=== PATIENT | male | born 1970 | race Caucasian/White ===

== ENCOUNTER 2021-11-08 17:32 | Inpatient (IN) | payer OTHER, MEDICAID, SELFPAY ==
[2021-11-08 17:34] VITALS: BP 140/83; PULSE 98; RESP 14; TEMP 36.8; O2SAT 99; BMI 27.6
[2021-11-08 17:51] VITALS: BP 140/83; PULSE 98; RESP 14; TEMP 36.8; O2SAT 99
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
[2021-11-08 18:29] LABS: Absolute Lymphocyte Count 1.58 X10^3/uL (0.83-4.51); Absolute Neutrophil Count 5.3 X10^3/uL (2.0-7.7); Basophil# 0.03 X10^3/uL; Basophil% 0.4 % (0-1); Eosinophils% 1.3 % (0-5); Hematocrit 42.4 % (40-54); Hemoglobin 14.4 g/dL (13.0-16.5); Lymphocyte # 1.58 X10^3/ul (0.83-4.51); Mean Corpuscular Hgb 29.5 pg (27.0-32.0); Mean Corpuscular Volume 86.9 fL (80-94); Mean Platelet Vol. 9.6 fl (6.2-12.0); Monocyte# 0.45 X10^3/uL; NRBC Flagged by Analyzer 0 % (0-5); Neutrophil # 5.34 X10^3/uL (2.7-7.7); Neutrophil % 70.9 % (47-70); Platelet Count 269 K/mm3 (150-450); RBC Distribution Width CV 13.4 % (11.6-14.6); RBC Distribution Width SD 42.5 fl (35.1-43.9); Red Blood Count 4.88 M/mm3 (4.6-6.2); White Blood Count 7.5 K/mm3 (4.4-11.0)
--- NOTE | 2021-11-08 18:30 | RAD_ITS ---
STUDY: RIGHT CALCANEUS X-RAY SERIES OF 1837 HOURS ON 11/08/2021 REASON FOR EXAM: 51-year-old male with right calcaneal pain. Evaluate for an osteomyelitis. TECHNIQUE: 2 view(s) of the calcaneus were obtained. COMPARISON: None. FINDINGS: There is no evidence of fractures or dislocations. There is no evidence of an osteomyelitis or periostitis. There is a small calcaneal spur and a moderate size Achilles spur. The talocalcaneal and calcaneal tarsal joints are normal. There is a soft tissue ulcer in the posterior aspect of the heel is 1.1 cm deep and lies 1.6 cm from the calcaneus. RAD/Calcaneus min 2 Views IMPRESSION: 1. No calcaneal osteomyelitis or periostitis. 2. 1.1 cm the soft tissue ulcer in the posterior aspect of the heel that lies 1.6 cm from the calcaneus. 3. Small calcaneal spur and a moderate size Achilles spur. 4. No fractures or dislocations. 5. Normal-appearing adjacent joints. Electronically Signed: Mykel De La Torre MD at 19:58 EDT ,
[2021-11-08 18:40] LABS: Anion Gap 6 (5-15); BUN 19 mg/dL (7-18); BUN/Creat Ratio 14.8 RATIO (10-20); Calcium,Total 9.7 mg/dL (8.5-10.1); Chloride 107 mmol/L (98-107); Creatinine, Serum 1.28 mg/dL (0.70-1.30); EST Glomerular Filtration Rate 63 mL/min (>60); Est Glom Filt Rate - Afr Amer 76 mL/min (>60); Estimated Creatinine Clearance 84.77 ml/min; Glucose 229 mg/dL (74-106); Potassium 3.9 mmol/L (3.5-5.1); Sodium Level 142 mmol/L (136-145)
[2021-11-08 19:04] VITALS: BP 145/80; PULSE 90; RESP 14; TEMP 36.7; O2SAT 98
[2021-11-08 19:04] LABS: Lactic Acid 1.9 mmol/L (0.4-1.9)
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
[2021-11-08 20:44] LABS: Procalcitonin < 0.04 ng/mL (0.00-0.09)
[2021-11-08 21:01] VITALS: BP 138/82; PULSE 88; RESP 18; TEMP 36.9; O2SAT 97
[2021-11-08 21:26] VITALS: BMI 27.6
[2021-11-08 21:52] VITALS: BP 122/82; PULSE 81; RESP 18; TEMP 37.1; O2SAT 95
--- NOTE | 2021-11-08 22:03 | PCM.RX.CS ---
Consult Pharmacy has been consulted to manage selected antiobiotic: Vancomycin Type of Consult: New start Suspected Infection: Skin/Soft tissue Prior Doses of Antibiotics Received/Current Regimen: Medications Vancomycin HCl 1,750 mg/ (Sodium Chloride) 535 mls @ 250 mls/hr IV Q12H MAXIMINO Discontinued Medications Vancomycin HCl 1,500 mg/ (Sodium Chloride) 530 mls @ 250 mls/hr IV X1 ONE Stop: 11/08/21 21:24 Last Admin: 11/08/21 19:53 Dose: 250 mls/hr Labs: Sodium 142 mmol/L (136-145) 11/08/21 18:20 Potassium 3.9 mmol/L (3.5-5.1) 11/08/21 18:20 Chloride 107 mmol/L (98-107) 11/08/21 18:20 Carbon Dioxide 29.0 mmol/L (21.0-32.0) 11/08/21 18:20 Anion Gap 6 (5-15) 11/08/21 18:20 BUN 19 mg/dL (7-18) H 11/08/21 18:20 Creatinine 1.28 mg/dL (0.70-1.30) 11/08/21 18:20 Est GFR (MDRD) Af Amer 76 mL/min (>60) 11/08/21 18:20 Est GFR (MDRD) Non-Af 63 mL/min (>60) 11/08/21 18:20 BUN/Creatinine Ratio 14.8 RATIO (10-20) 11/08/21 18:20 Glucose 229 mg/dL (74-106) H 11/08/21 18:20 Weight used for dosin.9 kg Estimated Creatinine Clearance: 85 Goal Trough: 15-20 mcg/mL Pharmacy Plan for Drug Dosing: Pharmacy Service will continue to monitor and adjust dosing as required. Follow-Up Labs: Trough Vancomycin Labs to be done on [date and time ordered]: 11/10/21 @1848
[2021-11-08] MEDS: 0.9% Normal Saline 1,000 ML 125 ML IV (22:47)
[2021-11-08 23:20] LABS: Bedside Glucose 125 mg/dL (74-106)
[2021-11-09 03:55] VITALS: BP 120/68; PULSE 80; RESP 14; TEMP 37.1; O2SAT 99
[2021-11-09] MEDS: 0.9% Normal Saline 1,000 ML 125 ML IV (06:16)
[2021-11-09 06:27] LABS: Absolute Lymphocyte Count 2.33 X10^3/uL (0.83-4.51); Absolute Neutrophil Count 4.1 X10^3/uL (2.0-7.7); Basophil# 0.03 X10^3/uL; Basophil% 0.4 % (0-1); Eosinophil# 0.14 X10^3/uL; Hematocrit 39.1 % (40-54); Lymphocyte # 2.33 X10^3/ul (0.83-4.51); Lymphocyte % 32.7 % (19-41); Mean Corp Hgb Conc 33.2 g/dL (32-36); Mean Corpuscular Hgb 29.3 pg (27.0-32.0); Mean Corpuscular Volume 88.3 fL (80-94); Mean Platelet Vol. 10.2 fl (6.2-12.0); Monocyte# 0.49 X10^3/uL; Monocyte% 6.9 % (0-10); NRBC Flagged by Analyzer 0 % (0-5); Neutrophil # 4.08 X10^3/uL (2.7-7.7); Neutrophil % 57.3 % (47-70); Platelet Count 254 K/mm3 (150-450); RBC Distribution Width CV 13.4 % (11.6-14.6); RBC Distribution Width SD 43.3 fl (35.1-43.9); Red Blood Count 4.43 M/mm3 (4.6-6.2); White Blood Count 7.1 K/mm3 (4.4-11.0)
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
--- NOTE | 2021-11-09 06:51 | ART_ITS ---
Reason For Study: Rt foot ulcer Procedure A bilateral lower extremity continuous wave Doppler with analog waveform analysis,segmental pressures,and ankle brachial indexes without exercise. Left Segmental Pressures Left brachial= 121mmHg. Left thigh = 161mmHg. The left popliteal artery waveforms are triphasic. Right Segmental Pressures Right posterior tibial artery = 164mmHg. Right dorsalis pedis artery = 146mmHg. Right digit = 127 mmHg. The right dorsalis pedis waveforms are triphasic. The right posterior tibial artery waveforms are triphasic. Indices The right ankle brachial index by the dorsalis pedis is 1.21. The right ankle brachial index by the posterior tibial artery is 1.36. The right digital-brachial index is 1.05. The left resting thigh brachial index is 1.33. VL/Lower Ext Art Exam w/o Exercis Interpretation Summary Right PATY 1.36, normal. Doppler/PVR waveforms of the right leg normal at rest. Prior left below knee amputation. Doppler/PVR waveforms of the left leg normal at rest. Ordering Physician: Li Anderson Referring Physician: Gurdeep Navarro Performed By: Leonela Craven RVAlbin
[2021-11-09 07:02] LABS: Anion Gap 5 (5-15); BUN 15 mg/dL (7-18); BUN/Creat Ratio 14.3 RATIO (10-20); Calcium,Total 9.2 mg/dL (8.5-10.1); Chloride 109 mmol/L (98-107); Creatinine, Serum 1.05 mg/dL (0.70-1.30); EST Glomerular Filtration Rate 79 mL/min (>60); Est Glom Filt Rate - Afr Amer 96 mL/min (>60); Estimated Creatinine Clearance 103.33 ml/min; Glucose 124 mg/dL (74-106); Potassium 3.8 mmol/L (3.5-5.1); Sodium Level 141 mmol/L (136-145)
[2021-11-09 07:20] LABS: Bedside Glucose 127 mg/dL (74-106)
--- NOTE | 2021-11-09 07:20 | MRI_ITS ---
STUDY: MRI RIGHT ANKLE WITHOUT CONTRAST REASON FOR EXAM: Injury of the posterior heel 2 months ago, diabetic wound, evaluate for calcaneal osteomyelitis. TECHNIQUE: Standardized fat and water weighted pulse sequences were obtained in all 3 orthogonal planes. COMPARISON: Radiographs 11/08/2021. FINDINGS: There is mild edema in the heel pad and a soft tissue ulcer of the heel without collection to indicate soft tissue abscess. There is a very small volume of fluid in the submalleolar posterior tibialis tendon sheath (inversion recovery sagittal image 22). The posterior tibialis tendon is morphologically normal. Normal flexor digitorum longus tendon. Normal flexor hallucis longus tendon. Normal peroneus longus and brevis tendons. Normal tibialis anterior tendon. Normal extensor hallucis longus tendon. Normal extensor digitorum longus tendons. There is mild fusiform thickening of the distal Achilles tendon (inversion recovery sagittal images 13-15) measuring 1.2 cm in AP dimension consistent with mild tendinosis without demonstrated tendon tear. There is a small posterior calcaneal enthesophyte. There is mild periaponeurotic edema of the plantar fascia (inversion recovery sagittal images 14-17). There is mild periosteal edema at the posterior aspect of the posterior tuberosity of the calcaneus (inversion recovery sagittal images 11-16) without intramedullary bone edema of the calcaneus. There is atrophy with partial fat replacement of the intrinsic muscles of the rearfoot (T1 sagittal images 8-16). Normal distal tibiofibular syndesmotic ligamentous complex. Normal lateral ligamentous complex. Normal subtalar ligaments and sinus tarsi. Normal deltoid ligamentous complexes. Normal plantar calcaneonavicular (spring) ligament. Normal tibiotalar articulation. Normal talar dome. Normal subtalar articulations. Normal talonavicular articulation. Normal calcaneocuboid articulation. Normal navicular-cuneiform articulations. There is amputation of the fifth metatarsal at the level of the proximal/mid diaphysis. MRI/Lower Ext Joint Only (Routine) IMPRESSION: Mild periosteal edema at the posterior aspect of the posterior tuberosity of the calcaneus without intramedullary bone edema of the calcaneus to indicate osteomyelitis. Mild Achilles tendinosis. Mild periaponeurotic edema of the plantar fascia. Very mild posterior tibialis tenosynovitis. Atrophy of the intrinsic muscles of the hindfoot suggestive of peripheral neuropathy. Electronically Signed: Micheal Pelletier MD at 10:11 EDT ,
[2021-11-09 08:00] VITALS: BP 134/90; PULSE 69; RESP 18; TEMP 36.9; O2SAT 99
[2021-11-09 08:13] LABS: Erythrocyte Sedimentation Rate 36 mm/hr (0-20)
[2021-11-09 08:40] LABS: Hemoglobin A1c 6.5 % (3.8-5.6)
--- NOTE | 2021-11-09 09:36 | PN.HOSP_ITS ---
Subjective Subjective Follow-up for right heel diabetic ulcer. No fever. Bilateral lower legs neuropathy. Patient is states his glucose is well controlled. A1c noted 6.5, ESR 36. He has left below-knee amputation because of diabetic ulcer in the past. Objective Data Objective Data Vital Signs: Vital Signs Temp Pulse Resp BP Pulse Ox O2 Del Method 98.7 F 80 14 120/68 99 Room Air 11/09/21 03:55 11/09/21 03:55 11/09/21 03:55 11/09/21 03:55 11/09/21 03:55 11/09/21 03:55 Oxygen Delivery Method Room Air Weight: 226 lb 13.69 oz Body Mass Index (BMI) 27.6 Intake & Output: Intake and Output for Last 24 Hours 11/07/21 11/08/21 11/09/21 23:59 23:59 23:59 Intake Total 445.83 / 445.83 2007.55 / 55 Output Total 1275 / 1275 Balance 445.83 / -4.17 733.55 / 733.55 Lab / Micro Data Result Diagrams: 11/09/21 05:25 11/09/21 05:25 Labs: Laboratory Results - last 24 hr 11/08/21 18:20: WBC 7.5, RBC 4.88, Hgb 14.4, Hct 42.4, MCV 86.9, MCH 29.5, MCHC 34.0, RDW Std Deviation 42.5, RDW Coeff of Jacinto 13.4, Plt Count 269, MPV 9.6, Immature Gran % (Auto) 0.400, Neut % (Auto) 70.9 H, Lymph % (Auto) 21.0, Stephenson % (Auto) 6.0, Eos % (Auto) 1.3, Baso % (Auto) 0.4, Absolute Neuts (auto) 5.3, Absolute Lymphs (auto) 1.58, Nucleated RBC % 0 11/08/21 18:20: Sodium 142, Potassium 3.9, Chloride 107, Carbon Dioxide 29.0, Anion Gap 6, BUN 19 H, Creatinine 1.28, Estim Creat Clear Calc 84.77, Est GFR (MDRD) Af Amer 76, Est GFR (MDRD) Non-Af 63, BUN/Creatinine Ratio 14.8, Glucose 229 H, Calcium 9.7 11/08/21 18:20: Lactic Acid 1.9 11/08/21 19:26: Procalcitonin < 0.04 11/08/21 22:43: POC Glucose 125 H 11/09/21 05:25: WBC 7.1, RBC 4.43 L, Hgb 13.0, Hct 39.1 L, MCV 88.3, MCH 29.3, MCHC 33.2, RDW Std Deviation 43.3, RDW Coeff of Jacinto 13.4, Plt Count 254, MPV 10.2, Immature Gran % (Auto) 0.700, Neut % (Auto) 57.3, Lymph % (Auto) 32.7, Stephenson % (Auto) 6.9, Eos % (Auto) 2.0, Baso % (Auto) 0.4, Absolute Neuts (auto) 4.1, Absolute Lymphs (auto) 2.33, Nucleated RBC % 0 11/09/21 05:25: Sodium 141, Potassium 3.8, Chloride 109 H, Carbon Dioxide 27.0, Anion Gap 5, BUN 15, Creatinine 1.05, Estim Creat Clear Calc 103.33, Est GFR (MDRD) Af Amer 96, Est GFR (MDRD) Non-Af 79, BUN/Creatinine Ratio 14.3, Glucose 124 H, Calcium 9.2 11/09/21 05:25: ESR 36 H 11/09/21 05:25: C-React Prot Ext Range 16.20 H 11/09/21 05:25: Hemoglobin A1c 6.5 H 11/09/21 06:17: POC Glucose 127 H Radiography Diagnostic Testing: Radiology Impression Os Calcis X-ray 11/08/21 18:30 IMPRESSION: 1. No calcaneal osteomyelitis or periostitis. 2. 1.1 cm the soft tissue ulcer in the posterior aspect of the heel that lies 1.6 cm from the calcaneus. 3. Small calcaneal spur and a moderate size Achilles spur. 4. No fractures or dislocations. 5. Normal-appearing adjacent joints. Electronically Signed: Mykel De La Torre MD at 19:58 EDT , Physical Exam Narrative Physical exam General: Alert, Oriented x3, Cooperative HEENT: Atraumatic, PERRLA, EOMI, Normocephalic Oral: No Gingival or Mucosal Lesions/ Ulcerations Neck: Supple, No JVD, Negative Carotid Bruits Lungs: Air entry diminished in bilateral lung bases. No crepitation/rhonchi Cardiovascular: Regular rate, Regular Rhythm, Normal S1, Normal S2, No murmurs Abdomen: Bowel Sounds Present, Soft, Non Tender, Non-Distended : No renal angle tenderness. No suprapubic tenderness. Extremities: No edema, Capillary Refill Less than 3 Seconds Skin: No rashes, No breakdown Musculoskeletal: No Tenderness to Palpation of Joints or Extremities. Left BKA. Right great toe amputation. Neurological: Decreased sensation over right leg below lower one third of right leg. Cranial nerves II-XII grossly intact, DTR 2+/4 Psych/Mental Status: Normal Affect, Appropriate. Assessment & Plan Assessment/Plan (1) Diabetic infection of right foot: PLAN: Plan This 51-year-old gentleman admitted with right heel diabetic foot ulcer with contiguous Right lower leg cellulitis and acute osteomyelitis of right calcaneum: Patient is being admitted to [facility]. Patient failed outpatient treatment with Cipro for 10 days with no improvement. Podiatry consult reviewed. Local debridement was done. Excisional subcutaneous devitalized tissue; fibrous to slough and biofilm and slough. Cultures are pending. No purulence. X-ray of foot showed did not show osseous destruction emphysema or foreign body or fracture dislocation. Dressing change daily with Dakin's wet-to-dry. Offloading. Wound nurses consulted. Continue IV vancomycin and Zosyn. MRI shows mild periosteal edema at posterior aspect of calcaneal tuberosity without intramedullary bone edema to indicate osteomyelitis. #TYpe 2 diabetes mellitus: Patient has good glucose control. A1c is between 6- 6.5. Continue home regimen. DVT prophylaxis: lovenox Code status: full code * Patient counseled extensively about different types of CODE STATUS including full code, DNR CCA and DNR CCA. Patient elects to be full code Clinical Impression(s) from Imaging Studies Os Calcis X-ray 11/08/21 18:30 IMPRESSION: 1. No calcaneal osteomyelitis or periostitis. 2. 1.1 cm the soft tissue ulcer in the posterior aspect of the heel that lies 1.6 cm from the calcaneus. 3. Small calcaneal spur and a moderate size Achilles spur. 4. No fractures or dislocations. 5. Normal-appearing adjacent joints. Electronically Signed: Mykel De La Torre MD at 19:58 EDT , Lower Extremity MRI 11/09/21 07:20 IMPRESSION: Mild periosteal edema at the posterior aspect of the posterior tuberosity of the calcaneus without intramedullary bone edema of the calcaneus to indicate osteomyelitis. Mild Achilles tendinosis. Mild periaponeurotic edema of the plantar fascia. Very mild posterior tibialis tenosynovitis. Atrophy of the intrinsic muscles of the hindfoot suggestive of peripheral neuropathy. Charges/Coding Visit Charges Inpatient E&M: 38687 Subs Hosp L2
--- NOTE | 2021-11-09 10:10 | CASEMGMT ---
RN CM Face to Face with patient for initial transition planning/care coordination assessment. RN CM introduced self and role at [facility]. Patient lying in bed, alert and oriented. Patient willing to participate in assessment and is able to answer all questions appropriately. Care providers, pharmacy, and demographics verified. Patient wishes to discharge home, denies need for home health at this time, will monitor need for HHC pending wound care and antibiotics at discharge. Patient states he has no further needs or concerns at this time. CM to follow for discharge planning needs that may arise. PCP: Gurdeep aNvarro Specialists: Patient states he follows with [facility] in [place], last seen 4 months ago Preferred Pharmacy: [facility] [place]; [facility] retail at discharge. Insurance: [employer] Prescription Benefit: yes Living Will/HPOA: none LNOK: Living Arrangements: Patient lives with in a 2 story home. Patient states he is independent and able to ambulate stairs. Transportation: self, DME/HHC: Patient has shower chair, walker, crutches, wheelchair, knee scooter, and prosthesis. Patient has HHC in the past and has done IV ATBs at home. Patient states in RN and able to complete wound care. No previous SNF. Disposition Plan: Patient to discharge home with family support and follow-up plans in place. Will monitor for HHC for wound care and antibiotics. Leonela CERVANTES, RN, CM
[2021-11-09] MEDS: morphine SR 15 MG Tablet 30 MG PO ×2 (10:30→21:20)
[2021-11-09] MEDS: Juven (unflavored) Packet 1 PACKET PO ×2 (10:30→16:34)
[2021-11-09] MEDS: Atorvastatin Calcium 80 MG Tablet PO (10:30)
[2021-11-09] MEDS: 0.9% Saline Lock 10 ML Syringe IV (10:31)
--- NOTE | 2021-11-09 11:08 | WOUNDNOTE ---
wound photo: right heel
--- NOTE | 2021-11-09 11:15 | WOUNDNOTE ---
wound photo: right heel
[2021-11-09] MEDS: Insulin Lispro 100 UNIT/ML INSULN.PEN SC ×3 (11:26→21:20)
[2021-11-09 11:40] LABS: Bedside Glucose 190 mg/dL (74-106)
[2021-11-09 12:09] LABS: M R Staph aureus DNA By PCR Negative (Negative); Probe Check PASS; Specimen Processing Control PASS; Staph aureus DNA By PCR NEGATIVE (Negative)
[2021-11-09 14:11] VITALS: BP 129/69; PULSE 78; RESP 18; TEMP 36.9; O2SAT 94
[2021-11-09 17:01] LABS: Bedside Glucose 170 mg/dL (74-106)
[2021-11-09 20:00] VITALS: BP 143/92; PULSE 65; RESP 16; TEMP 36.6; O2SAT 98
[2021-11-09 22:15] LABS: Bedside Glucose 207 mg/dL (74-106)
[2021-11-10 02:00] VITALS: BP 118/82; PULSE 66; RESP 14; TEMP 36.6; O2SAT 97
--- NOTE | 2021-11-10 06:50 | PCM.PROGNOTE ---
Subjective Subjective This 51-year-old male was seen bedside for follow-up of right heel ulcer with cellulitis. He had an MRI and noninvasive vascular studies completed yesterday and would like to review the results. He denies pain, fever, chill, nausea, vomiting. He thinks it looks a lot better this morning. He denies current nicotine or smoking activity. Objective Data Objective Data Vital Signs: Vital Signs Temp Pulse Resp BP Pulse Ox O2 Del Method 97.9 F 66 14 118/82 H 97 Room Air 11/10/21 02:00 11/10/21 02:00 11/10/21 02:00 11/10/21 02:00 11/10/21 02:00 11/10/21 02:00 Oxygen Delivery Method Room Air Weight: 102.9 kg Body Mass Index (BMI) 27.6 Intake & Output: Intake and Output for Last 24 Hours 11/08/21 11/09/21 11/10/21 23:59 23:59 23:59 Intake Total 445.83 / 445.83 3639.59 / 4089.59 900 / 900 Output Total 2275 / 2725 1100 / 1100 Balance 445.83 / -4.17 1364.59 / 1364.59 -200 / -200 Lab / Micro Data Result Diagrams: 11/09/21 05:25 11/09/21 05:25 Labs: Laboratory Results - last 24 hr 11/09/21 05:25: Sodium 141, Potassium 3.8, Chloride 109 H, Carbon Dioxide 27.0, Anion Gap 5, BUN 15, Creatinine 1.05, Estim Creat Clear Calc 103.33, Est GFR (MDRD) Af Amer 96, Est GFR (MDRD) Non-Af 79, BUN/Creatinine Ratio 14.3, Glucose 124 H, Calcium 9.2 11/09/21 05:25: ESR 36 H 11/09/21 05:25: C-React Prot Ext Range 16.20 H 11/09/21 05:25: Hemoglobin A1c 6.5 H 11/09/21 06:17: POC Glucose 127 H 11/09/21 07:15: S.aureus Protein A PCR NEGATIVE, MRSA (PCR) Negative 11/09/21 11:21: POC Glucose 190 H 11/09/21 16:32: POC Glucose 170 H 11/09/21 21:19: POC Glucose 207 H Micro: Microbiology 11/09/21 07:15 Wound - Heel Right Gram Stain - Final Radiography Diagnostic Testing: Radiology Impression Extremity Arterial Study 11/09/21 06:51 Interpretation Summary Right PATY 1.36, normal. Doppler/PVR waveforms of the right leg normal at rest. Prior left below knee amputation. Doppler/PVR waveforms of the left leg normal at rest. Ordering Physician: Li Anderson Referring Physician: Gurdeep Navarro Performed By: Leonela Craven, T Lower Extremity MRI 11/09/21 07:20 IMPRESSION: Mild periosteal edema at the posterior aspect of the posterior tuberosity of the calcaneus without intramedullary bone edema of the calcaneus to indicate osteomyelitis. Mild Achilles tendinosis. Mild periaponeurotic edema of the plantar fascia. Very mild posterior tibialis tenosynovitis. Atrophy of the intrinsic muscles of the hindfoot suggestive of peripheral neuropathy. Electronically Signed: Micheal Pelletier MD at 10:11 EDT Reading Location ID and State: [address] [place] [address] Tel , Service support , Physical Exam Const alert and oriented x3 Extremity Extremity Narrative: No calf tenderness Palpable DP pulse 2 out of 4 and DP 1 out of 4 Muscle wasting noted General Extremity: no tenderness to palpation of joints or extremities Skin Skin Narrative: no purulence, no streaking, no odor. The posterior medial heel ulcer has an ulcer with improved base quality of 90% granulation tissue and 10% fibrous tissue. There is no apparent undermining or adjacent bogginess or fluctuance. Adjacent erythema has resolved. The adjacent skin is hairless and atrophic Active range of motion digits and ankle right lower extremity is noted. Left below-knee amputation noted. Right lesser central toe amputation also noted. Negative Al and Calero sign General Skin Exam: Negative for erythema Neuro Neuro Narrative: lack of normal epicritic sensation via light touch is consistent with neuropathy status Psych cooperative Assessment & Plan Assessment/Plan (1) Cellulitis of right lower limb: (2) Non-pressure chronic ulcer of other part of right foot with fat layer exposed: (3) Acute osteomyelitis of right calcaneus: (4) Other specified peripheral vascular diseases: (5) Delayed wound healing: PLAN: Plan I reviewed and discussed his case today. He is responding well to his treatment plan so far. The following work up and care recommendations were made: Infection: He is on broad-spectrum IV antibiotics including vancomycin and Zosyn. Postdebridement deep wound cultures were obtained including aerobic, anaerobic, and MRSA PCR (negative); results pending. Culture guided therapy will be pursued. There is no purulence and I do not plan on emergent surgical intervention. Diagnostic data: X-rays of the calcaneus did not demonstrate any osseous destruction, soft tissue emphysema or foreign body or fracture dislocation. An MRI will be ordered to see if he has any infectious process going on in the bone given he did probe to the bone. The MRI was reviewed with some mild inflammation in the calcaneus but not an intramedullary area. The images were also reviewed and this is not consistent with osteomyelitis. No leukocytosis noted. ESR 36 and CRP 16.2. Dressing: Change daily with Dakin wet-to-dry. This was ordered. Wash: Soap and water Tissue growth optimization: Advanced wound healing product or wound techniques may be considered in the outpatient setting. The goal at this time is to alleviate his infectious status and to improve wound base quality Offload: Continue nonweightbearing with knee roller or walker for assistance. It is noted he uses a contralateral left lower extremity prosthetic limb. I also recommend improving offloading when laying in bed by hanging his heels over stacked pillows. Vascular: Noninvasive studies demonstrate adequate waveforms and ABIs. Adequate perfusion is suspected at this time. Edema: Russ wrap was applied Pain: Controlled due to neuropathic status Host factors: He does have diabetic neuropathy which may be delaying his healing. A1c 6.5%. I also recommend nutritional supplementation and Fred was ordered. I answered all the patient's questions. Medical management and DVT prophylaxis per hospitalist is appreciated. He will be followed while in house. Please do not hesitate to call if you have any questions. Li Anderson DPM, FACFAS [facility] [phone]
[2021-11-10 06:51] LABS: Bedside Glucose 142 mg/dL (74-106)
[2021-11-10] MEDS: DAKIN'S SOL HALF STRENGTH (=0.25%) 1 APPLIC TOPICAL (07:07)
[2021-11-10 08:05] LABS: Absolute Lymphocyte Count 2.01 X10^3/uL (0.83-4.51); Basophil# 0.05 X10^3/uL; Basophil% 0.9 % (0-1); Eosinophils% 1.8 % (0-5); Hematocrit 39.8 % (40-54); Hemoglobin 13.3 g/dL (13.0-16.5); Lymphocyte # 2.01 X10^3/ul (0.83-4.51); Lymphocyte % 36.3 % (19-41); Mean Corp Hgb Conc 33.4 g/dL (32-36); Mean Corpuscular Volume 86.9 fL (80-94); Mean Platelet Vol. 9.8 fl (6.2-12.0); Monocyte# 0.36 X10^3/uL; Monocyte% 6.5 % (0-10); NRBC Flagged by Analyzer 0 % (0-5); Neutrophil # 2.99 X10^3/uL (2.7-7.7); Platelet Count 239 K/mm3 (150-450); RBC Distribution Width CV 13.3 % (11.6-14.6); RBC Distribution Width SD 41.5 fl (35.1-43.9); Red Blood Count 4.58 M/mm3 (4.6-6.2); White Blood Count 5.5 K/mm3 (4.4-11.0)
[2021-11-10] MEDS: Insulin Glargine-YFGN 100 UNIT/ML Pen 20 UNIT SC (08:21)
[2021-11-10] MEDS: Atorvastatin Calcium 80 MG Tablet PO (08:22)
[2021-11-10 08:26] VITALS: BP 119/92; PULSE 63; RESP 18; TEMP 37.1; O2SAT 97
[2021-11-10 08:40] LABS: Anion Gap 6 (5-15); BUN 18 mg/dL (7-18); BUN/Creat Ratio 19.3 RATIO (10-20); Calcium,Total 8.8 mg/dL (8.5-10.1); Chloride 108 mmol/L (98-107); Creatinine, Serum 0.93 mg/dL (0.70-1.30); EST Glomerular Filtration Rate 91 mL/min (>60); Est Glom Filt Rate - Afr Amer 110 mL/min (>60); Estimated Creatinine Clearance 116.67 ml/min; Glucose 129 mg/dL (74-106); Potassium 3.9 mmol/L (3.5-5.1); Sodium Level 139 mmol/L (136-145)
[2021-11-10 08:54] LABS: Vancomycin, Trough Level 17.6 ug/mL (5.0-15.0)
--- NOTE | 2021-11-10 09:23 | PCM.RX.CS ---
Consult Type of Consult: Follow-up Suspected Infection: Skin/Soft tissue - Cellulitis (right heel) Labs: Sodium 139 mmol/L (136-145) 11/10/21 07:57 Potassium 3.9 mmol/L (3.5-5.1) 11/10/21 07:57 Chloride 108 mmol/L (98-107) H 11/10/21 07:57 Carbon Dioxide 25.0 mmol/L (21.0-32.0) 11/10/21 07:57 Anion Gap 6 (5-15) 11/10/21 07:57 BUN 18 mg/dL (7-18) 11/10/21 07:57 Creatinine 0.93 mg/dL (0.70-1.30) 11/10/21 07:57 Est GFR (MDRD) Af Amer 110 mL/min (>60) 11/10/21 07:57 Est GFR (MDRD) Non-Af 91 mL/min (>60) 11/10/21 07:57 BUN/Creatinine Ratio 19.3 RATIO (10-20) 11/10/21 07:57 Glucose 129 mg/dL (74-106) H 11/10/21 07:57 Vancomycin Trough 17.6 ug/mL (5.0-15.0) H 11/10/21 07:57 Microbiology: Microbiology 11/09/21 07:15 Wound - Heel Right Gram Stain - Final 11/09/21 07:15 Wound - Heel Right Wound Culture - Preliminary No growth-Final to follow Goal Trough: 15-20 mcg/mL Pharmacy Plan for Drug Dosing: VANCOMYCIN LEVEL RECEIVED Current Vancomycin Dose: 1750mg Q12H Number of Doses Received: 3 Vancomycin Level: 17.6 Hours Since Last Dose: 11 Renal Function: sCr 0.93 mg/dL and CrCl > 100 mL/min Renal Function Trend: improved Lab/Micro: pending Vancomycin Plan/Comments: Continue Vancomycin 1750mg Q12H Pending Level: Vancomycin trough @ 0730 11/12/21 Pharmacy Service will continue to monitor and adjust dosing as required. Labs to be done on [date and time ordered]: Vancomycin trough @ 0730 11/12/21
[2021-11-10] MEDS: morphine SR 15 MG Tablet 30 MG PO ×2 (09:54→22:07)
[2021-11-10] MEDS: Insulin Lispro 100 UNIT/ML INSULN.PEN SC (11:25)
[2021-11-10 11:45] LABS: Bedside Glucose 171 mg/dL (74-106)
[2021-11-10 14:10] VITALS: BP 130/81; PULSE 83; RESP 18; TEMP 37.2; O2SAT 98
--- NOTE | 2021-11-10 16:43 | PN.HOSP_ITS ---
Subjective Subjective Follow-up for diabetic foot ulcer. Dressing was changed today. No fever or chills Objective Data Objective Data Vital Signs: Vital Signs Temp Pulse Resp BP Pulse Ox O2 Del Method 99 F 83 18 130/81 H 98 Room Air 11/10/21 14:10 11/10/21 14:10 11/10/21 14:10 11/10/21 14:10 11/10/21 14:10 11/10/21 14:10 Oxygen Delivery Method Room Air Weight: 226 lb 13.69 oz Body Mass Index (BMI) 27.6 Intake & Output: Intake and Output for Last 24 Hours 11/08/21 11/09/21 11/10/21 23:59 23:59 23:59 Intake Total 445.83 / 445.83 3639.59 / 4089.59 1485 / 1485 Output Total 2275 / 2725 3050 / 3050 Balance 445.83 / -4.17 1364.59 / 1364.59 -1565 / -1565 Lab / Micro Data Result Diagrams: 11/10/21 07:57 11/10/21 07:57 Labs: Laboratory Results - last 24 hr 11/09/21 16:32: POC Glucose 170 H 11/09/21 21:19: POC Glucose 207 H 11/10/21 06:24: POC Glucose 142 H 11/10/21 07:57: Vancomycin Trough 17.6 H 11/10/21 07:57: WBC 5.5, RBC 4.58 L, Hgb 13.3, Hct 39.8 L, MCV 86.9, MCH 29.0, MCHC 33.4, RDW Std Deviation 41.5, RDW Coeff of Jacinto 13.3, Plt Count 239, MPV 9.8, Immature Gran % (Auto) 0.500, Neut % (Auto) 54.0, Lymph % (Auto) 36.3, [place] % (Auto) 6.5, Eos % (Auto) 1.8, Baso % (Auto) 0.9, Absolute Neuts (auto) 3.0, Absolute Lymphs (auto) 2.01, Nucleated RBC % 0 11/10/21 07:57: Sodium 139, Potassium 3.9, Chloride 108 H, Carbon Dioxide 25.0, Anion Gap 6, BUN 18, Creatinine 0.93, Estim Creat Clear Calc 116.67, Est GFR (MDRD) Af Amer 110, Est GFR (MDRD) Non-Af 91, BUN/Creatinine Ratio 19.3, Glucose 129 H, Calcium 8.8 11/10/21 11:24: POC Glucose 171 H Micro: Microbiology 11/09/21 07:15 Wound - Heel Right Gram Stain - Final 11/09/21 07:15 Wound - Heel Right Wound Culture - Preliminary No growth-Final to follow Physical Exam Narrative Physical exam General: Alert, Oriented x3, Cooperative HEENT: Atraumatic, PERRLA, EOMI, Normocephalic Oral: No Gingival or Mucosal Lesions/ Ulcerations Neck: Supple, No JVD, Negative Carotid Bruits Lungs: Air entry diminished in bilateral lung bases. No crepitation/rhonchi Cardiovascular: Regular rate, Regular Rhythm, Normal S1, Normal S2, No murmurs Abdomen: Bowel Sounds Present, Soft, Non Tender, Non-Distended : No renal angle tenderness. No suprapubic tenderness. Extremities: No edema, Capillary Refill Less than 3 Seconds Skin: Right heel ulcer, deep status post debridement. Surgical dressing present. Musculoskeletal: No Tenderness to Palpation of Joints or Extremities. Left BKA. Right great toe amputation. Neurological: Decreased sensation over right leg below lower one third of right leg. Cranial nerves II-XII grossly intact, DTR 2+/4 Psych/Mental Status: Normal Affect, Appropriate. Assessment & Plan Assessment/Plan (1) Diabetic infection of right foot: PLAN: Plan This 51-year-old gentleman admitted with right heel diabetic foot u lcer with contiguous Right lower leg cellulitis and acute osteomyelitis of right calcaneum: Patient is being admitted to [facility]. Patient failed outpatient treatment with Cipro for 10 days with no improvement. Podiatry consult reviewed. Local debridement was done. Excisional subcutaneous devitalized tissue; fibrous to slough and biofilm and slough. Cultures are pending. No purulence. X-ray of foot showed did not show osseous destruction emphysema or foreign body or fracture dislocation. Dressing change daily with Dakin's wet-to-dry. Offloading. Wound nurses consulted. Continue IV vancomycin and Zosyn. MRI shows mild periosteal edema at posterior aspect of calcaneal tuberosity without intramedullary bone edema to indicate osteomyelitis. 11/10: Preliminary gram stain does not show any growth. Full culture pending. Continue broad-spectrum antibiotic. Right PATY normal. #TYpe 2 diabetes mellitus: Patient has good glucose control. A1c is between 6- 6.5. Continue home regimen. 11/10: Glucoses between 140-270. Fasting blood sugar is 142. Prandial lispro 5 units 3 times daily with meals added. DVT prophylaxis: lovenox Code status: full code * Patient counseled extensively about different types of CODE STATUS including full code, DNR CCA and DNR CCA. Patient elects to be full code Microbiology Past 72 Hours 11/09/21 07:15 Wound - Heel Right Gram Stain - Final 11/09/21 07:15 Wound - Heel Right Wound Culture - Preliminary No growth-Final to follow Laboratory Results 11/09/21 16:32: POC Glucose 170 H 11/09/21 21:19: POC Glucose 207 H 11/10/21 06:24: POC Glucose 142 H 11/10/21 07:57: Vancomycin Trough 17.6 H 11/10/21 07:57: WBC 5.5, RBC 4.58 L, Hgb 13.3, Hct 39.8 L, MCV 86.9, MCH 29.0, MCHC 33.4, RDW Std Deviation 41.5, RDW Coeff of Jacinto 13.3, Plt Count 239, MPV 9.8, Immature Gran % (Auto) 0.500, Neut % (Auto) 54.0, Lymph % (Auto) 36.3, [place] % (Auto) 6.5, Eos % (Auto) 1.8, Baso % (Auto) 0.9, Absolute Neuts (auto) 3.0, Ab solute Lymphs (auto) 2.01, Nucleated RBC % 0 11/10/21 07:57: Sodium 139, Potassium 3.9, Chloride 108 H, Carbon Dioxide 25.0, Anion Gap 6, BUN 18, Creatinine 0.93, Estim Creat Clear Calc 116.67, Est GFR (MDRD) Af Amer 110, Est GFR (MDRD) Non-Af 91, BUN/Creatinine Ratio 19.3, Glucose 129 H, Calcium 8.8 11/10/21 11:24: POC Glucose 171 H Clinical Impression(s) from Imaging Studies Os Calcis X-ray 11/08/21 18:30 IMPRESSION: 1. No calcaneal osteomyelitis or periostitis. 2. 1.1 cm the soft tissue ulcer in the posterior aspect of the heel that lies 1.6 cm from the calcaneus. 3. Small calcaneal spur and a moderate size Achilles spur. 4. No fractures or dislocations. 5. Normal-appearing adjacent joints. Electronically Signed: Mykel De La Torre MD at 19:58 EDT , Extremity Arterial Study 11/09/21 06:51 Interpretation Summary Right PATY 1.36, normal. Doppler/PVR waveforms of the right leg normal at rest. Prior left below knee amputation. Doppler/PVR waveforms of the left leg normal at rest. Ordering Physician: Li Adnerson Referring Physician: Gurdeep Navarro Performed By: Leonela Craven T Lower Extremity MRI 11/09/21 07:20 IMPRESSION: Mild periosteal edema at the posterior aspect of the posterior tuberosity of the calcaneus without intramedullary bone edema of the calcaneus to indicate osteomyelitis. Mild Achilles tendinosis. Mild periaponeurotic edema of the plantar fascia. Very mild posterior tibialis tenosynovitis. Atrophy of the intrinsic muscles of the hindfoot suggestive of peripheral neuropathy. E Charges/Coding Visit Charges Inpatient E&M: 88452 Subs Hosp L2
[2021-11-10 16:50] LABS: Bedside Glucose 149 mg/dL (74-106)
[2021-11-10 20:15] VITALS: BP 120/84; PULSE 65; RESP 14; TEMP 36.9; O2SAT 95
[2021-11-11 00:45] LABS: Bedside Glucose 179 mg/dL (74-106)
[2021-11-11 02:15] VITALS: BP 129/94; PULSE 66; RESP 14; TEMP 36.5; O2SAT 95
[2021-11-11 06:03] LABS: Absolute Lymphocyte Count 2.08 X10^3/uL (0.83-4.51); Absolute Neutrophil Count 3.5 X10^3/uL (2.0-7.7); Basophil# 0.04 X10^3/uL; Basophil% 0.6 % (0-1); Eosinophil# 0.15 X10^3/uL; Eosinophils% 2.4 % (0-5); Hematocrit 41.5 % (40-54); Hemoglobin 13.8 g/dL (13.0-16.5); Lymphocyte # 2.08 X10^3/ul (0.83-4.51); Lymphocyte % 33.4 % (19-41); Mean Corp Hgb Conc 33.3 g/dL (32-36); Mean Corpuscular Hgb 28.9 pg (27.0-32.0); Mean Platelet Vol. 9.9 fl (6.2-12.0); Monocyte# 0.43 X10^3/uL; Monocyte% 6.9 % (0-10); NRBC Flagged by Analyzer 0 % (0-5); Neutrophil % 56.2 % (47-70); Platelet Count 241 K/mm3 (150-450); RBC Distribution Width CV 13.2 % (11.6-14.6); RBC Distribution Width SD 41.9 fl (35.1-43.9); Red Blood Count 4.77 M/mm3 (4.6-6.2); White Blood Count 6.2 K/mm3 (4.4-11.0)
[2021-11-11 06:27] LABS: Anion Gap 5 (5-15); BUN 17 mg/dL (7-18); BUN/Creat Ratio 18.8 RATIO (10-20); Calcium,Total 9.2 mg/dL (8.5-10.1); Chloride 109 mmol/L (98-107); EST Glomerular Filtration Rate 94 mL/min (>60); Est Glom Filt Rate - Afr Amer 114 mL/min (>60); Estimated Creatinine Clearance 120.56 ml/min; Glucose 132 mg/dL (74-106); Potassium 3.9 mmol/L (3.5-5.1); Sodium Level 141 mmol/L (136-145)
[2021-11-11 07:30] LABS: Bedside Glucose 121 mg/dL (74-106)
--- NOTE | 2021-11-11 08:14 | PN_ITS ---
Subjective Subjective This 51-year-old male was seen bedside for follow-up of right heel ulcer with cellulitis. He is responding well to IV antibiotics and local wound care. He denies pain, fever, chill, nausea, vomiting. He is eager to return home. He would also like to follow-up for wound care in the local setting. Objective Data Objective Data Vital Signs: Vital Signs Temp Pulse Resp BP Pulse Ox O2 Del Method 97.7 F L 66 14 129/94 H 95 Room Air 11/11/21 02:15 11/11/21 02:15 11/11/21 02:15 11/11/21 02:15 11/11/21 02:15 11/11/21 02:15 Oxygen Delivery Method Room Air Weight: 102.9 kg Body Mass Index (BMI) 27.6 Intake & Output: Intake and Output for Last 24 Hours 11/09/21 11/10/21 11/11/21 23:59 23:59 23:59 Intake Total 3639.59 / 4089.59 2070 / 2070 192.25 / 192.25 Output Total 2275 / 2725 3050 / 3725 1775 / 1775 Balance 1364.59 / 1364.59 -980 / -1655 -1582.75 / -1582.75 Lab / Micro Data Result Diagrams: 11/11/21 05:25 11/11/21 05:25 Labs: Laboratory Results - last 24 hr 11/10/21 07:57: Vancomycin Trough 17.6 H 11/10/21 07:57: Sodium 139, Potassium 3.9, Chloride 108 H, Carbon Dioxide 25.0, Anion Gap 6, BUN 18, Creatinine 0.93, Estim Creat Clear Calc 116.67, Est GFR (MDRD) Af Amer 110, Est GFR (MDRD) Non-Af 91, BUN/Creatinine Ratio 19.3, Glucose 129 H, Calcium 8.8 11/10/21 11:24: POC Glucose 171 H 11/10/21 16:30: POC Glucose 149 H 11/10/21 22:05: POC Glucose 179 H 11/11/21 05:25: WBC 6.2, RBC 4.77, Hgb 13.8, Hct 41.5, MCV 87.0, MCH 28.9, MCHC 33.3, RDW Std Deviation 41.9, RDW Coeff of Jacinto 13.2, Plt Count 241, MPV 9.9, Immature Gran % (Auto) 0.500, Neut % (Auto) 56.2, Lymph % (Auto) 33.4, [place] % (Auto) 6.9, Eos % (Auto) 2.4, Baso % (Auto) 0.6, Absolute Neuts (auto) 3.5, Absolute Lymphs (auto) 2.08, Nucleated RBC % 0 11/11/21 05:25: Sodium 141, Potassium 3.9, Chloride 109 H, Carbon Dioxide 27.0, Anion Gap 5, BUN 17, Creatinine 0.90, Estim Creat Clear Calc 120.56, Est GFR (MDRD) Af Amer 114, Est GFR (MDRD) Non-Af 94, BUN/Creatinine Ratio 18.8, Glucose 132 H, Calcium 9.2 11/11/21 06:50: POC Glucose 121 H Micro: Microbiology 11/09/21 07:15 Wound - Heel Right Gram Stain - Final 11/09/21 07:15 Wound - Heel Right Wound Culture - Preliminary No growth-Final to follow Physical Exam Const alert and oriented x3 Extremity Extremity Narrative: No calf tenderness Palpable DP pulse 2 out of 4 and DP 1 out of 4 Muscle wasting noted Skin Skin Narrative: no purulence, no streaking, no odor. The posterior medial heel ulcer has an ulcer with improved base quality of 100% granulation tissue and no longer fibrous tissue. There is no apparent undermining or adjacent bogginess or fluctuance. Adjacent erythema has resolved. The adjacent skin is hairless and atrophic Active range of motion digits and ankle right lower extremity is noted. Left below-knee amputation noted. Right lesser central toe amputation also noted. Negative Al and Calero sign General Skin Exam: Negative for erythema Neuro Neuro Narrative: lack of normal epicritic sensation via light touch is consistent with neuropathy status Psych cooperative Assessment & Plan Assessment/Plan (1) Cellulitis of right lower limb: (2) Non-pressure chronic ulcer of other part of right foot with fat layer exposed: (3) Acute osteomyelitis of right calcaneus: (4) Other specified peripheral vascular diseases: (5) Delayed wound healing: PLAN: Plan I reviewed and discussed his case today. He is responding well to his treatment plan so far. The following work up and care recommendations were made: Infection: He is on broad-spectrum IV antibiotics including vancomycin and Zosyn. Postdebridement deep wound cultures were obtained including aerobic, anaerobic, and MRSA PCR (negative); results pending. Culture guided therapy will be pursued. There is no purulence and I do not plan on emergent surgical intervention. He is afebrile and vitals remained stable. He does not demonstrate leukocytosis. Infectious disease was asked to be in consultation due to deep tissue exposure and minimal bone findings even though osteomyelitis was not necessarily confirmed. Input and recommendation to be greatly appreciated prior to discharge. Diagnostic data: X-rays of the calcaneus did not demonstrate any osseous destruction, soft tissue emphysema or foreign body or fracture dislocation. An MRI will be ordered to see if he has any infectious process going on in the bone given he did probe to the bone. The MRI was reviewed with some mild inflammation in the calcaneus but not an intramedullary area. Dressing: Change daily with Dakin wet-to-dry. Wash: Soap and water Tissue growth optimization: Advanced wound healing product or wound techniques may be considered in the outpatient setting. The goal at this time is to alleviate his infectious status and to improve wound base quality Offload: Continue nonweightbearing with knee roller or walker for assistance. It is noted he uses a contralateral left lower extremity prosthetic limb. I also recommend improving offloading when laying in bed by hanging his heels over stacked pillows. Vascular: Noninvasive studies demonstrate adequate waveforms and ABIs. Adequate perfusion is suspected at this time. Edema: Russ wrap was applied Pain: Controlled due to neuropathic status Host factors: He does have diabetic neuropathy which may be delaying his healing. A1c 6.5%. I also recommend nutritional supplementation and Fred was ordered. Medical management and DVT prophylaxis per hospitalist services noted and greatly appreciated. I answered all the patient's questions. Okay to discharge home from a podiatry standpoint. Please do not hesitate to call if you have any questions. Li Anderson DPM, [facility] [phone]
[2021-11-11 08:24] VITALS: BP 129/81; PULSE 67; RESP 18; TEMP 36.6; O2SAT 97
[2021-11-11] MEDS: Atorvastatin Calcium 80 MG Tablet PO (08:29)
[2021-11-11] MEDS: Insulin Glargine-YFGN 100 UNIT/ML Pen 20 UNIT SC (08:30)
[2021-11-11] MEDS: DAKIN'S SOL HALF STRENGTH (=0.25%) 1 APPLIC TOPICAL (08:35)
--- NOTE | 2021-11-11 09:00 | DCINST_ITS ---
Discharge Instructions Diet Discharge Diet: Low fat / Low cholesterol and 1800 Calorie Control Diet Dressing / Incision Call your doctor if you observe: Fever of 101 or Higher, Coldness, Increased Pain, Numbness or Tingling, Change in Color, Inability to urinate, Inability to have a bowel movement, Shortness of breath, Dizziness, Fainting spells, Swelling in the ankles, Chest pain, Prolonged hiccupping, Increased palpitations (irregular heartbeat), Calf discomfort and Uncontrolled pain Follow Up Care Test Results: Test results from this visit will be discussed in further detail at your follow- up appointment, if applicable. Discharge Plan Admission Admit Date/Time: 11/08/21 20:45 Primary Reason for Your Visit: Acute osteomyelitis of right calcaneum Attending Provider: Hector Calderón Primary Care Provider: Gurdeep Navarro Consulting Providers: Li Anderson ; Juliana Anaya ; Niraj Jason Instructions Additional Instructions / Restrictions: Forefoot weightbear with surgical shoe. Hang heel over pillows while in bed to keep all pressure off of the wound. Change dressing daily with dakin wet to dry gauze to the foot ulcer. Wash with antibacterial soap and water. Do not soak. Continue to take nutritional supplements to optimize healing. Discharge Orders/Prescriptions Prescriptions: New doxycycline hyclate 100 mg capsule 100 mg PO BID Qty: 80 0RF amoxicillin-pot clavulanate 875-125 mg tablet 1 tab PO BID Qty: 80 0RF insulin lispro [Humalog KwikPen Insulin] 100 unit/mL Insulin Pen 5 unit subcut TIDAC Qty: 15 0RF Rx Instructions: Hold if glucose less than 130 mg/dl insulin lispro [Humalog KwikPen Insulin] 100 unit/mL Insulin Pen See Protocol subcut ACHS Qty: 0 0RF Protocol: 3. Sliding Scale Insulin Med Dosing Condition: 150-189 mg/dl = 1 unit Condition: 190-229 mg/dl = 2 units Condition: 230-269 mg/dl = 3 units Condition: 270-309 mg/dl = 4 units Condition: 310-349 mg/dl = 5 units Condition: 350-399 mg/dl = 6 units Condition: 400-449 mg/dl = 7 units Condition: Greater than 449 call physician Protocol Text: - Use for Total Daily Dose of Insulin 37-55 units - Obsese, infected, or steroid patients MEDIUM DOSING ALGORITHIM Eliquis 2.5 mg tablet 2.5 mg PO BID Qty: 60 0RF Rx Instructions: DVT prophylaxis. High risk for DVT Continued atorvastatin 80 mg tablet 80 mg PO DAILY Label Comments: take 1 tablet by mouth once daily morphine 30 mg tablet extended release 30 mg PO BID Label Comments: take 1 tablet by mouth twice a day oxycodone 5 mg tablet 5 mg PO BID PRN PRN (Reason: Breakthrough Pain) Label Comments: take 1 tablet by mouth if needed for Breakthrough pain three times a day insulin glargine [Lantus Solostar U-100 Insulin] 100 unit/mL (3 mL) insulin pen 20 unit SUBCUT DAILY Label Comments: inject 20 units subcutaneously once daily Discontinued ciprofloxacin HCl 500 mg tablet 500 mg PO BID Label Comments: take 1 tablet by mouth twice a day Referrals / Follow Up: Seamus Fried DPM [Med Staff - Active Staff] - In 1 Week (Call the wound center to follow up with any wound center provider; [phone].) Gurdeep Navarro MD [Primary Care Provider] - Disposition Disposition (needs filled in before D/C Order can be placed): Home, Self Care
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
[2021-11-11] MEDS: morphine SR 15 MG Tablet 30 MG PO (09:57)
[2021-11-11 11:50] LABS: Bedside Glucose 152 mg/dL (74-106)
--- NOTE | 2021-11-11 12:05 | PCM.DC.SUM ---
Providers Date of Admission: 11/08/21 Date of Discharge: 11/11/21 Primary Care Physician: Dr. Gurdeep Navarro MD Consultations 11/08/21 21:25 Consult: Onc/Wound/nail welter Routine Comment: Consult: Podiatry Routine Consulting Provider: Li Anderson Reason for Consult: right heel diabetic ulcer EMERGENT Consult: No Notified: Yes Date Notified: 11/08/21 Time Notified: 21:04 Method of Notification: Text 11/10/21 13:50 Consult: Infectious Disease Routine Consulting Provider: Niraj Jason Reason for Consult: Right heed ulcer, MRI periosteal edema of Calcaneum EMERGENT Consult: No Notified: Yes Date Notified: 11/10/21 Time Notified: 13:50 Method of Notification: Text Reason For Visit: RIGHT HEEL DIABETIC FOOT INFECTION Diagnosis Discharge Diagnosis (1) Acute osteomyelitis of right calcaneus: Status: Acute Code(s): M86.171 - Other acute osteomyelitis, right ankle and foot (2) Diabetic infection of right foot: Status: Acute Code(s): E11.628 - Type 2 diabetes mellitus with other skin complications; L08.9 - Local infection of the skin and subcutaneous tissue, unspecified (3) Cellulitis of right lower limb: Status: Acute Code(s): L03.115 - Cellulitis of right lower limb (4) Non-pressure chronic ulcer of other part of right foot with fat layer exposed: Status: Chronic Code(s): L97.512 - Non-pressure chronic ulcer of other part of right foot with fat layer exposed (5) Other specified peripheral vascular diseases: Status: Acute Code(s): I73.89 - Other specified peripheral vascular diseases (6) Delayed wound healing: Status: Acute Code(s): T14.8XXD - Other injury of unspecified body region, subsequent encounter Plan This 51-year-old gentleman admitted with right heel diabetic foot ulcer with contiguous Right lower leg cellulitis and acute osteomyelitis of right calcaneum: Patient is being admitted to [facility]. Patient failed outpatient treatment with Cipro for 10 days with no improvement. Podiatry consult reviewed. Local debridement was done. Excisional subcutaneous devitalized tissue; fibrous to slough and biofilm and slough. Cultures are pending. No purulence. X-ray of foot showed did not show osseous destruction emphysema or foreign body or fracture dislocation. Dressing change daily with Dakin's wet-to-dry. Offloading. Wound nurses consulted. Continue IV vancomycin and Zosyn. MRI shows mild periosteal edema at posterior aspect of calcaneal tuberosity without intramedullary bone edema to indicate osteomyelitis. 11/10: Preliminary gram stain does not show any growth. Full culture pending. Continue broad-spectrum antibiotic. Right PATY normal. #TYpe 2 diabetes mellitus: Patient has good glucose control. A1c is between 6-6.5. Continue home regimen. 11/10: Glucoses between 140-270. Fasting blood sugar is 142. Prandial lispro 5 units 3 times daily with meals added. DVT prophylaxis: lovenox Code status: full code Patient counseled extensively about different types of CODE STATUS including full code, DNR CCA and DNR CCA. Patient elects to be full code Microbiology Past 72 Hours 11/09/21 07:15 Wound - Heel Right Gram Stain - Final 11/09/21 07:15 Wound - Heel Right Wound Culture - Preliminary No growth-Final to follow Laboratory Results 11/09/21 16:32: POC Glucose 170 H 11/09/21 21:19: POC Glucose 207 H 11/10/21 06:24: POC Glucose 142 H 11/10/21 07:57: Vancomycin Trough 17.6 H 11/10/21 07:57: WBC 5.5, RBC 4.58 L, Hgb 13.3, Hct 39.8 L, MCV 86.9, MCH 29.0, MCHC 33.4, RDW Std Deviation 41.5, RDW Coeff of Jacinto 13.3, Plt Count 239, MPV 9.8, Immature Gran % (Auto) 0.500, Neut % (Auto) 54.0, Lymph % (Auto) 36.3, [place] % (Auto) 6.5, Eos % (Auto) 1.8, Baso % (Auto) 0.9, Absolute Neuts (auto) 3.0, Absolute Lymphs (auto) 2.01, Nucleated RBC % 0 11/10/21 07:57: Sodium 139, Potassium 3.9, Chloride 108 H, Carbon Dioxide 25.0, Anion Gap 6, BUN 18, Creatinine 0.93, Estim Creat Clear Calc 116.67, Est GFR (MDRD) Af Amer 110, Est GFR (MDRD) Non-Af 91, BUN/Creatinine Ratio 19.3, Glucose 129 H, Calcium 8.8 11/10/21 11:24: POC Glucose 171 H Clinical Impression(s) from Imaging Studies Os Calcis X-ray 11/08/21 18:30 IMPRESSION: 1. No calcaneal osteomyelitis or periostitis. 2. 1.1 cm the soft tissue ulcer in the posterior aspect of the heel that lies 1.6 cm from the calcaneus. 3. Small calcaneal spur and a moderate size Achilles spur. 4. No fractures or dislocations. 5. Normal-appearing adjacent joints. Electronically Signed: Mykel De La Torre MD at 19:58 EDT , Extremity Arterial Study 11/09/21 06:51 Interpretation Summary Right PATY 1.36, normal. Doppler/PVR waveforms of the right leg normal at rest. Prior left below knee amputation. Doppler/PVR waveforms of the left leg normal at rest. Ordering Physician: Li Anderson Referring Physician: Gurdeep Navarro Performed By: Leonela Craven T Lower Extremity MRI 11/09/21 07:20 IMPRESSION: Mild periosteal edema at the posterior aspect of the posterior tuberosity of the calcaneus without intramedullary bone edema of the calcaneus to indicate osteomyelitis. Mild Achilles tendinosis. Mild periaponeurotic edema of the plantar fascia. Very mild posterior tibialis tenosynovitis. Atrophy of the intrinsic muscles of the hindfoot suggestive of peripheral neuropathy. E Medications at Discharge Home Medications atorvastatin 80 mg tablet 80 mg PO DAILY cholesterol 11/08/21 insulin glargine 100 unit/mL (3 mL) subcutaneous pen (Lantus Solostar U-100 Insulin) 20 unit subcut DAILY diabetes 11/08/21 morphine 30 mg tablet,extended release 30 mg PO BID chronic pain 11/08/21 oxycodone 5 mg tablet 5 mg PO BID PRN PRN Breakthrough Pain 11/08/21 amoxicillin 875 mg-potassium clavulanate 125 mg tablet 1 tab PO BID #80 tabs 11/11/21 apixaban 2.5 mg tablet (Eliquis) 2.5 mg PO BID #60 tabs 11/11/21 doxycycline hyclate 100 mg capsule 100 mg PO BID #80 caps 11/11/21 insulin lispro 100 unit/mL subcutaneous pen (Humalog KwikPen (U-100) Insulin) 5 unit (0.05 mL) subcut TIDAC #15 mL 11/11/21 insulin lispro 100 unit/mL subcutaneous pen (Humalog KwikPen (U-100) Insulin) See Protocol subcut ACHS #0 mL 11/11/21 Hospital Course Summary of Care Provided Hospital Course: This 51-year-old gentleman admitted with right heel diabetic foot ulcer with contiguous Right lower leg cellulitis and acute osteomyelitis of right calcaneum: Patient is being admitted to [facility]. Patient failed outpatient treatment with Cipro for 10 days with no improvement. Podiatry consult reviewed. Local debridement was done. Excisional subcutaneous devitalized tissue; fibrous to slough and biofilm and slough. No purulence. X-ray of foot showed did not show osseous destruction emphysema or foreign body or fracture dislocation. Dressing change daily with Dakin's wet-to-dry. Offloading. Wound nurses consulted. Continue IV vancomycin and Zosyn. MRI shows mild periosteal edema at posterior aspect of calcaneal tuberosity without intramedullary bone edema to indicate osteomyelitis. 11/10: Preliminary gram stain does not show any growth. Continue broad-spectrum antibiotic. Right PATY normal. 11/11: Preliminary wound cultures negative so far. ID is consulted. Opinion is acute osteomyelitis of right calcaneum. The patient was prescribed 6 weeks of Augmentin and doxycycline by ID. Patient was taking ciprofloxacin as an outpatient which is discontinued. 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 Left lower extremity prosthetic limb. Therefore, 30 days of Eliquis 2.5 mg twice daily prescribed for DVT prophylaxis. #TYpe 2 diabetes mellitus: Patient has good glucose control. A1c is between 6-6.5. Continue home regimen. 11/10: Glucoses between 140-270. Fasting blood sugar is 142. Prandial lispro 5 units 3 times daily with meals added. Advised to continue lispro 5 units 3 times daily with meal along with Accu-Cheks before meals and at bedtime and follow with PCP. A1c 6.5%. DVT prophylaxis: High risk: lovenox Code status: full code Patient counseled extensively about different types of CODE STATUS including full code, DNR CCA and DNR CCA. Patient elects to be full code Microbiology Past 72 Hours 11/09/21 07:15 Wound - Heel Right Gram Stain - Final 11/09/21 07:15 Wound - Heel Right Wound Culture - Preliminary No growth-Final to follow Laboratory Results 11/10/21 16:30: POC Glucose 149 H 11/10/21 22:05: POC Glucose 179 H 11/11/21 05:25: WBC 6.2, RBC 4.77, Hgb 13.8, Hct 41.5, MCV 87.0, MCH 28.9, MCHC 33.3, RDW Std Deviation 41.9, RDW Coeff of Jacinto 13.2, Plt Count 241, MPV 9.9, Immature Gran % (Auto) 0.500, Neut % (Auto) 56.2, Lymph % (Auto) 33.4, [place] % (Auto) 6.9, Eos % (Auto) 2.4, Baso % (Auto) 0.6, Absolute Neuts (auto) 3.5, Absolute Lymphs (auto) 2.08, Nucleated RBC % 0 11/11/21 05:25: Sodium 141, Potassium 3.9, Chloride 109 H, Carbon Dioxide 27.0, Anion Gap 5, BUN 17, Creatinine 0.90, Estim Creat Clear Calc 120.56, Est GFR (MDRD) Af Amer 114, Est GFR (MDRD) Non-Af 94, BUN/Creatinine Ratio 18.8, Glucose 132 H, Calcium 9.2 11/11/21 06:50: POC Glucose 121 H 11/11/21 11:20: POC Glucose 152 H Physical Exam Narrative Physical exam General: Alert, Oriented x3, Cooperative HEENT: Atraumatic, PERRLA, EOMI, Normocephalic Oral: No Gingival or Mucosal Lesions/ Ulcerations Neck: Supple, No JVD, Negative Carotid Bruits Lungs: Air entry diminished in bilateral lung bases. No crepitation/rhonchi Cardiovascular: Regular rate, Regular Rhythm, Normal S1, Normal S2, No murmurs Abdomen: Bowel Sounds Present, Soft, Non Tender, Non-Distended : No renal angle tenderness. No suprapubic tenderness. Extremities: No edema, Capillary Refill Less than 3 Seconds Skin: Right heel ulcer, deep status post debridement. Surgical dressing present. Russ wrap bandage intact. Musculoskeletal: No Tenderness to Palpation of Joints or Extremities. Left BKA. Right great toe amputation. Neurological: Decreased sensation over right leg below lower one third of right leg. Cranial nerves II-XII grossly intact, DTR 2+/4 Psych/Mental Status: Normal Affect, Appropriate. Weight / BMI Weight Weight: 226 lb 13.69 oz Body Mass Index (BMI) 27.6 ABG / Lab / Microbiology Data Result Diagrams: 11/11/21 05:25 11/11/21 05:25 Laboratory: Laboratory Results - last 24 hr 11/10/21 16:30: POC Glucose 149 H 11/10/21 22:05: POC Glucose 179 H 11/11/21 05:25: WBC 6.2, RBC 4.77, Hgb 13.8, Hct 41.5, MCV 87.0, MCH 28.9, MCHC 33.3, RDW Std Deviation 41.9, RDW Coeff of Jacinto 13.2, Plt Count 241, MPV 9.9, Immature Gran % (Auto) 0.500, Neut % (Auto) 56.2, Lymph % (Auto) 33.4, [place] % (Auto) 6.9, Eos % (Auto) 2.4, Baso % (Auto) 0.6, Absolute Neuts (auto) 3.5, Absolute Lymphs (auto) 2.08, Nucleated RBC % 0 11/11/21 05:25: Sodium 141, Potassium 3.9, Chloride 109 H, Carbon Dioxide 27.0, Anion Gap 5, BUN 17, Creatinine 0.90, Estim Creat Clear Calc 120.56, Est GFR (MDRD) Af Amer 114, Est GFR (MDRD) Non-Af 94, BUN/Creatinine Ratio 18.8, Glucose 132 H, Calcium 9.2 11/11/21 06:50: POC Glucose 121 H 11/11/21 11:20: POC Glucose 152 H Microbiology: Microbiology 11/09/21 07:15 Wound - Heel Right Gram Stain - Final 11/09/21 07:15 Wound - Heel Right Wound Culture - Preliminary No growth-Final to follow D/C Instructions Discharge Diet: Low fat / Low cholesterol and 1800 Calorie Control Diet Call your doctor if you observe: Fever of 101 or Higher, Coldness, Increased Pain, Numbness or Tingling, Change in Color, Inability to urinate, Inability to have a bowel movement, Shortness of breath, Dizziness, Fainting spells, Swelling in the ankles, Chest pain, Prolonged hiccupping, Increased palpitations (irregular heartbeat), Calf discomfort and Uncontrolled pain Meaningful Use Info Meaningful Use Diagnoses (Choose all that apply): None applicable Discharge Plan Admission Admit Date/Time: 11/08/21 20:45 Primary Reason for Your Visit: Acute osteomyelitis of right calcaneum Attending Provider: Hector Calderón Primary Care Provider: Gurdeep Navarro Consulting Providers: Li Anderson ; Juliana Anaya ; Niraj Jason Instructions Additional Instructions / Restrictions: Forefoot weightbear with surgical shoe. Hang heel over pillows while in bed to keep all pressure off of the wound. Change dressing daily with dakin wet to dry gauze to the foot ulcer. Wash with antibacterial soap and water. Do not soak. Continue to take nutritional supplements to optimize healing. Discharge Orders/Prescriptions Prescriptions: New doxycycline hyclate 100 mg capsule 100 mg PO BID Qty: 80 0RF amoxicillin-pot clavulanate 875-125 mg tablet 1 tab PO BID Qty: 80 0RF insulin lispro [Humalog KwikPen Insulin] 100 unit/mL Insulin Pen 5 unit subcut TIDAC Qty: 15 0RF Rx Instructions: Hold if glucose less than 130 mg/dl insulin lispro [Humalog KwikPen Insulin] 100 unit/mL Insulin Pen See Protocol subcut ACHS Qty: 0 0RF Protocol: 3. Sliding Scale Insulin Med Dosing Condition: 150-189 mg/dl = 1 unit Condition: 190-229 mg/dl = 2 units Condition: 230-269 mg/dl = 3 units Condition: 270-309 mg/dl = 4 units Condition: 310-349 mg/dl = 5 units Condition: 350-399 mg/dl = 6 units Condition: 400-449 mg/dl = 7 units Condition: Greater than 449 call physician Protocol Text: - Use for Total Daily Dose of Insulin 37-55 units - Obsese, infected, or steroid patients MEDIUM DOSING ALGORITHIM Eliquis 2.5 mg tablet 2.5 mg PO BID Qty: 60 0RF Rx Instructions: DVT prophylaxis. High risk for DVT Continued atorvastatin 80 mg tablet 80 mg PO DAILY Label Comments: take 1 tablet by mouth once daily morphine 30 mg tablet extended release 30 mg PO BID Label Comments: take 1 tablet by mouth twice a day oxycodone 5 mg tablet 5 mg PO BID PRN PRN (Reason: Breakthrough Pain) Label Comments: take 1 tablet by mouth if needed for Breakthrough pain three times a day insulin glargine [Lantus Solostar U-100 Insulin] 100 unit/mL (3 mL) insulin pen 20 unit SUBCUT DAILY Label Comments: inject 20 units subcutaneously once daily Discontinued ciprofloxacin HCl 500 mg tablet 500 mg PO BID Label Comments: take 1 tablet by mouth twice a day Referrals / Follow Up: Seamus Fried DPM [Med Staff - Active Staff] - In 1 Week (Call the wound center to follow up with any wound center provider; [phone].) Gurdeep Navarro MD [Primary Care Provider] - Within 2 Weeks Niraj Jason MD [Med Staff - Active Staff] - Within 2 Weeks (Follow-up in 2 to 3 weeks.) Disposition Disposition (needs filled in before D/C Order can be placed): Home, Self Care Charges/Coding Visit Charges Inpatient E&M: 00879 Disch Hosp
[2021-11-11 12:27] VITALS: BP 130/94; PULSE 87; RESP 18; TEMP 36.8; O2SAT 98
--- NOTE | 2021-11-11 12:59 | CASEMGMT ---
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 Pt to dc on po atb. Denies further needs.
== END 2021-11-11 14:58 | disposition home or self-care (01) | DRG 623 ==
LOC: ED 20:41 → MS3 20:53
PROVIDERS: Podiatrist; Admitting Provider Student in an Organized Health Care Education/Training Program; Emergency Provider Emergency Medicine; PCP Family Medicine; Visit Provider Internal Medicine
DX: E11.69 Type 2 diabetes mellitus with other specified complication (principal); M86.171 Other acute osteomyelitis, right ankle and foot; L03.115 Cellulitis of right lower limb; L97.412 Non-pressure chronic ulcer of right heel and midfoot with fat layer exposed; E11.621 Type 2 diabetes mellitus with foot ulcer; E11.51 Type 2 diabetes mellitus with diabetic peripheral angiopathy without gangrene; E11.40 Type 2 diabetes mellitus with diabetic neuropathy, unspecified; Z79.4 Long term (current) use of insulin; J44.9 Chronic obstructive pulmonary disease, unspecified; Z89.421 Acquired absence of other right toe(s); Z89.512 Acquired absence of left leg below knee; T25.021S Burn of unspecified degree of right foot, sequela; X19.XXXS Contact with other heat and hot substances, sequela; G89.29 Other chronic pain; F32.A Depression, unspecified; Z79.01 Long term (current) use of anticoagulants; Z79.899 Other long term (current) drug therapy; Z87.891 Personal history of nicotine dependence
CPT/HCPCS: 36415; 73650; 73721; 80048; 80202; 82962; 83036; 83605; 84145; 85025; 85652; 86140; 87070; 87075; 87077; 87186; 87205; 87640; 93923; 97802; 99284; J7030; J7040; J7050; A4216

== ENCOUNTER 2021-11-29 08:38 | Outpatient (RCR) | payer OTHER, MEDICAID, SELFPAY ==
[2021-11-29 09:01] VITALS: BP 153/84; PULSE 78; RESP 16; TEMP 36; BMI 27.3
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
== END 2021-12-02 23:59 | disposition home or self-care (01) ==
LOC: WC 08:38
PROVIDERS: PCP Family Medicine; Visit Provider Podiatrist
DX: L97.412 Non-pressure chronic ulcer of right heel and midfoot with fat layer exposed (principal); Z89.512 Acquired absence of left leg below knee; E11.42 Type 2 diabetes mellitus with diabetic polyneuropathy; Z79.4 Long term (current) use of insulin; T25.021S Burn of unspecified degree of right foot, sequela; X19.XXXS Contact with other heat and hot substances, sequela; Z79.899 Other long term (current) drug therapy
CPT/HCPCS: 11042; 99213; G0463

== ENCOUNTER 2021-12-27 09:30 | Outpatient (RCR) | payer OTHER, MEDICAID, SELFPAY ==
[2021-12-03 01:47] VITALS: BP 153/84; PULSE 78; RESP 16; TEMP 36; BMI 27.3
[2021-12-06 10:10] VITALS: BP 155/90; PULSE 82; RESP 18; TEMP 36.1; BMI 27.3
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
[2021-12-13 09:39] VITALS: TEMP 36.3; BMI 27.3
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
[2021-12-20 09:47] VITALS: BP 149/94; PULSE 91; RESP 16; TEMP 36.1; BMI 27.3
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
[2021-12-27 09:36] VITALS: BP 138/86; PULSE 86; TEMP 36.1; BMI 27.3
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
== END 2022-01-02 23:59 | disposition home or self-care (01) ==
LOC: WC 09:30
PROVIDERS: PCP Family Medicine; Visit Provider Podiatrist
DX: L97.512 Non-pressure chronic ulcer of other part of right foot with fat layer exposed (principal); Z89.512 Acquired absence of left leg below knee; E11.42 Type 2 diabetes mellitus with diabetic polyneuropathy; Z79.4 Long term (current) use of insulin; T25.021S Burn of unspecified degree of right foot, sequela; X19.XXXS Contact with other heat and hot substances, sequela; Z79.899 Other long term (current) drug therapy
CPT/HCPCS: 11042; 15275; Q4186

== ENCOUNTER 2022-01-31 09:30 | Outpatient (RCR) | payer OTHER, MEDICAID, SELFPAY ==
[2022-01-03 00:37] VITALS: BP 138/86; PULSE 86; RESP 16; TEMP 36.1; BMI 27.3
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
[2022-01-03 11:27] VITALS: BP 148/98; PULSE 83; TEMP 35.9; BMI 27.3
[2022-01-10 09:21] VITALS: RESP 18; TEMP 36.1; BMI 27.3
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
[2022-01-17 09:19] VITALS: BP 151/85; PULSE 97; RESP 20; TEMP 36.6; BMI 27.3
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
[2022-01-24 09:21] VITALS: BP 157/88; PULSE 93; RESP 18; TEMP 36.1; BMI 27.3
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
[2022-01-31 09:12] VITALS: BP 146/95; PULSE 77; RESP 20; TEMP 36.6; BMI 27.3
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
== END 2022-02-01 23:59 | disposition home or self-care (01) ==
LOC: WC 09:30
PROVIDERS: PCP Family Medicine; Visit Provider Podiatrist
DX: L97.412 Non-pressure chronic ulcer of right heel and midfoot with fat layer exposed (principal); Z89.512 Acquired absence of left leg below knee; E11.42 Type 2 diabetes mellitus with diabetic polyneuropathy; Z79.4 Long term (current) use of insulin; T25.021S Burn of unspecified degree of right foot, sequela; X19.XXXS Contact with other heat and hot substances, sequela; Z79.899 Other long term (current) drug therapy
CPT/HCPCS: 15275; Q4186

== ENCOUNTER 2022-02-07 08:58 | Outpatient (RCR) | payer OTHER, MEDICAID, SELFPAY ==
[2022-02-02 00:33] VITALS: BP 146/95; PULSE 77; RESP 20; TEMP 36.6; BMI 27.3
[2022-02-07 09:10] VITALS: BP 135/95; PULSE 84; RESP 16; TEMP 36.2; BMI 27.3
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
== END 2022-03-04 23:59 | disposition home or self-care (01) ==
LOC: WC 08:58
PROVIDERS: PCP Family Medicine; Visit Provider Podiatrist
DX: L97.412 Non-pressure chronic ulcer of right heel and midfoot with fat layer exposed (principal); Z89.512 Acquired absence of left leg below knee; E11.42 Type 2 diabetes mellitus with diabetic polyneuropathy; T25.021S Burn of unspecified degree of right foot, sequela; X19.XXXS Contact with other heat and hot substances, sequela; Z79.899 Other long term (current) drug therapy
CPT/HCPCS: 15275; Q4186